=== PATIENT | female | born 1985 ===

== ENCOUNTER 2020-04-26 12:30 | Inpatient (IN) | payer OTHER ==
[~2020-04-26] VITALS: Ht 160 cm; Wt 57.6 kg
[2020-05-01] MEDS ORDERED: PRENATAL TABLE1 EAC1 PO (06:40)
== END 2020-05-03 11:05 | disposition home or self-care (01) | DRG 807 ==
LOC: OB/GYN 05-01 05:35 → LDR 05-01 05:35 → OB/GYN 05-01 15:00
PROVIDERS: ADMIT Specialist; ATTEND Specialist
PROC: 10E0XZZ Delivery of Products of Conception, External Approach (ICD-10-PCS; principal; 2020-05-01)
PROC: 0HQ9XZZ Repair Perineum Skin, External Approach (ICD-10-PCS; 2020-05-01)
PROC: 10907ZC Drainage of Amniotic Fluid, Therapeutic from Products of Conception, Via Natural or Artificial Opening (ICD-10-PCS; 2020-05-01)
PROC: 3E033VJ Introduction of Other Hormone into Peripheral Vein, Percutaneous Approach (ICD-10-PCS; 2020-05-01)
PROC: 3E0P7VZ Introduction of Hormone into Female Reproductive, Via Natural or Artificial Opening (ICD-10-PCS; 2020-05-01)
PROC: 4A1HXFZ Monitoring of Products of Conception, Cardiac Rhythm, External Approach (ICD-10-PCS; 2020-05-01)
DX: O70.0 First degree perineal laceration during delivery (principal); Z37.0 Single live birth; Z3A.39 39 weeks gestation of pregnancy; Z20.822 Contact with and (suspected) exposure to COVID-19